=== PATIENT | male | born 1965 | race Caucasian/White ===

== ENCOUNTER → 2020-07-29 10:40 | Outpatient (BNVA) | payer MEDICARE, SELFPAY | PROVIDERS: Family Provider Internal Medicine; PCP Internal Medicine; Visit Provider Internal Medicine Rheumatology | DX: M45.9 Ankylosing spondylitis of unspecified sites in spine (principal); Z15.89 Genetic susceptibility to other disease; Z11.59 Encounter for screening for other viral diseases; Z79.899 Other long term (current) drug therapy; R76.8 Other specified abnormal immunological findings in serum; K50.90 Crohn's disease, unspecified, without complications | CPT/HCPCS: 80076; 82306; 82565; 85025; 85651; 86140; 86431; 86704; 86803; 87340; 99204 ==

== ENCOUNTER 2020-07-29 12:31 | Outpatient (CLI) | payer MEDICARE, SELFPAY ==
[2020-07-29 13:03] LABS: Basophils # 0.1 10^3/uL (0.0-0.1); Basophils % 1.3 %; Eosinophils # 0.1 10^3/uL (0.0-0.8); Eosinophils % 1.3 %; Hematocrit 37.3 % (42.0-52.0); Lymphocytes # 1.8 10^3/uL (0.8-4.8); Lymphocytes % 18.5 %; Mean Corpuscular HGB Conc 32.2 g/dL (30.0-36.0); Mean Corpuscular Hemoglobin 27.5 pg (28.0-34.0); Mean Corpuscular Volume 85.6 fL (80-94); Mean Platelet Volume 9.9 fL (7.4-10.4); Monocytes # 0.9 10^3/uL (0.2-0.9); Monocytes % 9.3 %; Neutrophils # 6.57 10^3/uL (1.8-7.7); Neutrophils % 69.1 %; Nucleated Red Blood Cells % 0 %; Platelet Count 429 10^3/cmm (130-400); Red Blood Count 4.36 10^6/uL (4.1-5.3); White Blood Count 9.5 10^3/uL (4.0-10.0)
[2020-07-29 13:50] LABS: 25 Hydroxy Vitamin D 23 ng/mL (30-100); Alanine Aminotransferase 67 U/L (0-41); Albumin Level 3.8 g/dL (3.5-5.2); Alkaline Phosphatase 71 IU/L (40-130); Aspartate Amino Transferase 41 U/L (0-40); C Reactive Protein 31.9 mg/L (0.0-4.9); Globulin 4.6 g/dL (1.3-4.6); Glomerular Filtration Rate 100.4 mL/min (90-130); Total Bilirubin 0.2 mg/dL (0.15-1.2); Total Protein 8.4 g/dL (6.6-8.7)
[2020-07-29 14:06] LABS: Hepatitis B Core AB, Total Non-Reactive (Nonreactive); Hepatitis B Surface Antigen Non-Reactive (Nonreactive); Hepatitis C Virus Antibody Non-Reactive (Nonreactive)
[2020-07-29 14:50] LABS: Erythrocyte Sedimentation Rate 103 mm/hr (0-10)
[2020-07-30 15:27] LABS: Cyclic Citrullinated Peptide <16 UNITS
[2020-07-31 12:38] LABS: COMPLEMENT COMPONENT C3C 216 mg/dL (82-185); COMPLEMENT COMPONENT C4C 43 mg/dL (15-53)
[2020-07-31 13:08] LABS: COMPLEMENT, TOTAL (CH50) >60 U/mL (31-60)
[2020-07-31 15:43] LABS: CENTROMERE B ANTIBODY <1.0 NEG AI (<1.0 NEG); JO-1 ANTIBODY <1.0 NEG AI (<1.0 NEG); RNP ANTIBODY <1.0 NEG AI (<1.0 NEG); SCL-70 ANTIBODY <1.0 NEG AI (<1.0 NEG); SJOGREN'S ANTIBODY (SS-A) <1.0 NEG AI (<1.0 NEG); SM ANTIBODY <1.0 NEG AI (<1.0 NEG); SS-B <1.0 NEG AI (<1.0 NEG)
[2020-07-31 16:14] LABS: THYROID PEROXIDASE ANTIBODIES 2 IU/mL (<9)
[2020-08-03 13:18] LABS: ANA SCREEN, IFA NEGATIVE (NEGATIVE)
[2020-08-03 21:18] LABS: DNA AB (DS) CRITHIDIA,IFA NEGATIVE (NEGATIVE)
== END 2020-07-29 12:32 | disposition home or self-care (01) ==
LOC: RAD 12:36
PROVIDERS: PCP Internal Medicine; Visit Provider Internal Medicine Rheumatology
DX: M45.9 Ankylosing spondylitis of unspecified sites in spine (principal); K50.90 Crohn's disease, unspecified, without complications; R76.8 Other specified abnormal immunological findings in serum; Z79.899 Other long term (current) drug therapy
CPT/HCPCS: 80076; 82306; 82565; 85025; 85651; 86140; 86431; 86704; 86803; 87340

== ENCOUNTER → 2020-12-01 10:28 | Outpatient (BNVA) | payer MEDICARE, SELFPAY | PROVIDERS: PCP Internal Medicine; Visit Provider Internal Medicine Rheumatology | DX: Z79.899 Other long term (current) drug therapy (principal); M19.90 Unspecified osteoarthritis, unspecified site | CPT/HCPCS: 36415; 80076; 82565; 85025; 86140 ==

== ENCOUNTER → 2020-12-08 14:30 | Outpatient (BNVA) | payer MEDICARE, SELFPAY | PROVIDERS: PCP Registered Nurse; Visit Provider Internal Medicine Rheumatology | DX: M45.9 Ankylosing spondylitis of unspecified sites in spine (principal); Z15.89 Genetic susceptibility to other disease; K50.90 Crohn's disease, unspecified, without complications; Z79.899 Other long term (current) drug therapy | CPT/HCPCS: 99214 ==

== ENCOUNTER → 2021-03-10 10:17 | Outpatient (BNVA) | payer MEDICARE, SELFPAY | PROVIDERS: PCP Registered Nurse; Visit Provider Internal Medicine Rheumatology | DX: M45.9 Ankylosing spondylitis of unspecified sites in spine (principal); Z79.899 Other long term (current) drug therapy | CPT/HCPCS: 36415; 80076; 82565; 82607; 85025; 86140 ==

== ENCOUNTER → 2021-03-23 12:46 | Outpatient (BNVA) | payer MEDICARE, SELFPAY | PROVIDERS: PCP Registered Nurse; Visit Provider Internal Medicine Rheumatology | DX: M45.9 Ankylosing spondylitis of unspecified sites in spine (principal); K50.90 Crohn's disease, unspecified, without complications; Z15.89 Genetic susceptibility to other disease; Z79.899 Other long term (current) drug therapy; Z71.89 Other specified counseling; Z90.49 Acquired absence of other specified parts of digestive tract; Z87.891 Personal history of nicotine dependence | CPT/HCPCS: 99214 ==

== ENCOUNTER → 2021-07-29 15:38 | Outpatient (BNVA) | payer MEDICARE, SELFPAY | PROVIDERS: PCP Registered Nurse; Visit Provider Registered Nurse | DX: Z12.83 Encounter for screening for malignant neoplasm of skin (principal) | CPT/HCPCS: 88305 ==

== ENCOUNTER → 2021-08-02 09:30 | Outpatient (BNVA) | payer MEDICARE, SELFPAY | PROVIDERS: PCP Registered Nurse; Visit Provider Internal Medicine Rheumatology | DX: M45.9 Ankylosing spondylitis of unspecified sites in spine (principal); Z79.899 Other long term (current) drug therapy; M19.90 Unspecified osteoarthritis, unspecified site | CPT/HCPCS: 36415; 80076; 82565; 85025; 86140 ==

== ENCOUNTER → 2021-08-09 11:28 | Outpatient (BNVA) | payer MEDICARE, SELFPAY | PROVIDERS: PCP Registered Nurse; Visit Provider Internal Medicine Rheumatology | DX: M45.9 Ankylosing spondylitis of unspecified sites in spine (principal); K50.90 Crohn's disease, unspecified, without complications; Z15.89 Genetic susceptibility to other disease; Z79.899 Other long term (current) drug therapy; Z90.49 Acquired absence of other specified parts of digestive tract; Z86.11 Personal history of tuberculosis; Z71.89 Other specified counseling | CPT/HCPCS: 99214 ==

== ENCOUNTER → 2021-09-16 15:24 | Outpatient (BNVA) | payer MEDICARE, SELFPAY | PROVIDERS: PCP Registered Nurse; Referring Provider Registered Nurse; Visit Provider Podiatrist Foot & Ankle Surgery | DX: M21.611 Bunion of right foot (principal); M21.612 Bunion of left foot; M21.41 Flat foot [pes planus] (acquired), right foot; M21.42 Flat foot [pes planus] (acquired), left foot; M20.41 Other hammer toe(s) (acquired), right foot; M20.42 Other hammer toe(s) (acquired), left foot | CPT/HCPCS: 73630 ==

== ENCOUNTER 2021-11-02 15:20 | Outpatient (CLI) | payer MEDICARE, SELFPAY | END 2021-11-02 15:21 | disposition home or self-care (01) | LOC: SPT 15:21 | PROVIDERS: PCP Registered Nurse; Visit Provider Podiatrist Foot & Ankle Surgery | DX: Z46.89 Encounter for fitting and adjustment of other specified devices (principal); M21.611 Bunion of right foot; M21.612 Bunion of left foot; M21.41 Flat foot [pes planus] (acquired), right foot; M21.42 Flat foot [pes planus] (acquired), left foot; M20.40 Other hammer toe(s) (acquired), unspecified foot | CPT/HCPCS: 97760; L3030 ==

== ENCOUNTER → 2021-11-18 09:49 | Outpatient (BNVA) | payer MEDICARE, SELFPAY | PROVIDERS: PCP Registered Nurse; Visit Provider Internal Medicine Rheumatology | DX: M45.9 Ankylosing spondylitis of unspecified sites in spine (principal); Z87.19 Personal history of other diseases of the digestive system; Z15.89 Genetic susceptibility to other disease; Z79.899 Other long term (current) drug therapy; Z90.49 Acquired absence of other specified parts of digestive tract; Z71.89 Other specified counseling | CPT/HCPCS: 36415; 80076; 82565; 85025; 86140; 99214 ==

== ENCOUNTER 2022-05-10 13:04 | Outpatient (CLI) | payer MEDICARE, SELFPAY ==
[2022-05-10 13:18] LABS: Basophils # 0.1 10^3/uL (0.0-0.1); Basophils % 1.3 %; Eosinophils # 0.3 10^3/uL (0.0-0.8); Eosinophils % 3.9 %; Hemoglobin 14.5 g/dL (11.7-16.6); Lymphocytes # 2.4 10^3/uL (0.8-4.8); Lymphocytes % 28.1 %; Mean Corpuscular HGB Conc 33.7 g/dL (30.0-36.0); Mean Corpuscular Volume 88.8 fl (80-94); Mean Platelet Volume 9.7 fL (7.4-10.4); Monocytes # 0.6 10^3/uL (0.2-0.9); Monocytes % 7.1 %; Neutrophils # 5.11 10^3/uL (1.8-7.7); Neutrophils % 59.4 %; Nucleated Red Blood Cells % 0 %; Platelet Count 298 10^3/cmm (130-400); Red Blood Count 4.84 10^6/uL (4.1-5.3); Red Cell Distribution Width 12.2 % (12.1-15.1); White Blood Count 8.6 10^3/uL (4.0-10.0)
[2022-05-10 13:45] LABS: Albumin Level 4.5 g/dL (3.5-5.2); Alkaline Phosphatase 53 U/L (40-130); Aspartate Amino Transferase 46 U/L (0-40); Globulin 4.3 g/dL (1.3-4.6); Total Bilirubin 0.5 mg/dL (0.15-1.2); Total Protein 8.8 g/dL (6.6-8.7)
[2022-05-10 15:13] LABS: Alanine Aminotransferase 67 U/L (0-41)
== END 2022-05-10 13:05 | disposition home or self-care (01) ==
LOC: LAB 13:05
PROVIDERS: PCP Registered Nurse; Visit Provider Internal Medicine Rheumatology
DX: M45.9 Ankylosing spondylitis of unspecified sites in spine (principal); Z79.899 Other long term (current) drug therapy
CPT/HCPCS: 36415; 80076; 82565; 85025; 86140

== ENCOUNTER → 2022-05-23 10:29 | Outpatient (BNVA) | payer MEDICARE, SELFPAY | PROVIDERS: PCP Registered Nurse; Visit Provider Internal Medicine Rheumatology | DX: M45.9 Ankylosing spondylitis of unspecified sites in spine (principal); Z15.89 Genetic susceptibility to other disease; K50.90 Crohn's disease, unspecified, without complications; Z79.899 Other long term (current) drug therapy; Z71.89 Other specified counseling | CPT/HCPCS: 99214 ==

== ENCOUNTER → 2022-06-15 09:12 | Outpatient (BNVA) | payer MEDICARE, SELFPAY | PROVIDERS: PCP Registered Nurse; Visit Provider Registered Nurse | DX: I10 Essential (primary) hypertension (principal) | CPT/HCPCS: 80053; 80061 ==

== ENCOUNTER 2022-10-19 15:29 | Outpatient (CLI) | payer MEDICARE, SELFPAY ==
[2022-10-19 16:17] LABS: Basophils # 0.1 10^3/uL (0.0-0.1); Basophils % 1.3 %; Eosinophils # 0.2 10^3/uL (0.0-0.8); Eosinophils % 2.4 %; Hematocrit 43.6 % (42.0-52.0); Hemoglobin 14.8 g/dL (11.7-16.6); Lymphocytes # 2.6 10^3/uL (0.8-4.8); Lymphocytes % 31.3 %; Mean Corpuscular HGB Conc 33.9 g/dL (30.0-36.0); Mean Corpuscular Hemoglobin 29.6 pg (28.0-34.0); Mean Corpuscular Volume 87.2 fl (80-94); Mean Platelet Volume 9.6 fL (7.4-10.4); Monocytes # 1.2 10^3/uL (0.2-0.9); Monocytes % 14.7 %; Neutrophils # 4.23 10^3/uL (1.8-7.7); Neutrophils % 50.1 %; Nucleated Red Blood Cells % 0 %; Platelet Count 297 10^3/cmm (130-400); White Blood Count 8.4 10^3/uL (4.0-10.0)
[2022-10-19 16:48] LABS: Alanine Aminotransferase 59 U/L (0-41); Albumin Level 4.2 g/dL (3.5-5.2); Alkaline Phosphatase 53 U/L (40-130); Aspartate Amino Transferase 42 U/L (0-40); C Reactive Protein 7.1 mg/L (0.0-4.9); Globulin 4.3 g/dL (1.3-4.6); Glomerular Filtration Rate 76.7 mL/min (90-130); Total Bilirubin 0.5 mg/dL (0.15-1.2); Total Protein 8.5 g/dL (6.6-8.7)
== END 2022-10-19 15:30 | disposition home or self-care (01) ==
PROVIDERS: PCP Registered Nurse; Visit Provider Internal Medicine Rheumatology
DX: M45.9 Ankylosing spondylitis of unspecified sites in spine (principal); Z79.899 Other long term (current) drug therapy
CPT/HCPCS: 36415; 80076; 82565; 85025; 86140

== ENCOUNTER → 2022-10-24 11:23 | Outpatient (BNVA) | payer MEDICARE, SELFPAY | PROVIDERS: PCP Registered Nurse; Visit Provider Internal Medicine Rheumatology | DX: M45.9 Ankylosing spondylitis of unspecified sites in spine (principal); Z79.899 Other long term (current) drug therapy; Z15.89 Genetic susceptibility to other disease; K50.90 Crohn's disease, unspecified, without complications; Z71.89 Other specified counseling; Z86.11 Personal history of tuberculosis | CPT/HCPCS: 99214 ==

== ENCOUNTER 2022-11-23 12:32 | Outpatient (CLI) | payer MEDICARE, SELFPAY ==
[2022-11-23 13:04] LABS: Basophils # 0.1 10^3/uL (0.0-0.1); Basophils % 1.7 %; Eosinophils # 0.2 10^3/uL (0.0-0.8); Eosinophils % 3.8 %; Hematocrit 42.4 % (42.0-52.0); Hemoglobin 14.1 g/dL (11.7-16.6); Lymphocytes # 2.1 10^3/uL (0.8-4.8); Lymphocytes % 35.6 %; Mean Corpuscular HGB Conc 33.3 g/dL (30.0-36.0); Mean Corpuscular Hemoglobin 29.6 pg (28.0-34.0); Mean Corpuscular Volume 89.1 fl (80-94); Mean Platelet Volume 9.7 fL (7.4-10.4); Monocytes # 0.7 10^3/uL (0.2-0.9); Monocytes % 11.7 %; Neutrophils # 2.81 10^3/uL (1.8-7.7); Nucleated Red Blood Cells % 0 %; Platelet Count 289 10^3/cmm (130-400); Red Blood Count 4.76 10^6/uL (4.1-5.3); Red Cell Distribution Width 12.2 % (12.1-15.1)
[2022-11-23 13:33] LABS: Alanine Aminotransferase 49 U/L (0-41); Albumin Level 4.7 g/dL (3.5-5.2); Alkaline Phosphatase 45 U/L (40-130); Aspartate Amino Transferase 40 U/L (0-40); Globulin 3.8 g/dL (1.3-4.6); Glomerular Filtration Rate 86.7 mL/min (90-130); Total Bilirubin 0.5 mg/dL (0.15-1.2); Total Protein 8.5 g/dL (6.6-8.7)
== END 2022-11-23 12:33 | disposition home or self-care (01) ==
PROVIDERS: PCP Registered Nurse; Visit Provider Internal Medicine Rheumatology
DX: M45.9 Ankylosing spondylitis of unspecified sites in spine (principal); Z79.899 Other long term (current) drug therapy
CPT/HCPCS: 36415; 80076; 82565; 85025; 86140

== ENCOUNTER 2023-01-24 12:58 | Outpatient (CLI) | payer MEDICARE, SELFPAY ==
[2023-01-24 13:36] LABS: Basophils # 0.1 10^3/uL (0.0-0.1); Basophils % 1.5 %; Eosinophils # 0.3 10^3/uL (0.0-0.8); Eosinophils % 3.7 %; Hematocrit 42.8 % (42.0-52.0); Hemoglobin 14.7 g/dL (11.7-16.6); Lymphocytes # 2.5 10^3/uL (0.8-4.8); Lymphocytes % 32.4 %; Mean Corpuscular HGB Conc 34.3 g/dL (30.0-36.0); Mean Corpuscular Hemoglobin 30.9 pg (28.0-34.0); Mean Corpuscular Volume 89.9 fl (80-94); Mean Platelet Volume 9.3 fL (7.4-10.4); Monocytes # 0.9 10^3/uL (0.2-0.9); Neutrophils # 3.88 10^3/uL (1.8-7.7); Neutrophils % 50.1 %; Nucleated Red Blood Cells % 0 %; Platelet Count 315 10^3/cmm (130-400); Red Blood Count 4.76 10^6/uL (4.1-5.3); Red Cell Distribution Width 12.8 % (12.1-15.1); White Blood Count 7.8 10^3/uL (4.0-10.0)
[2023-01-24 14:03] LABS: Alanine Aminotransferase 31 U/L (0-41); Albumin Level 4.5 g/dL (3.5-5.2); Alkaline Phosphatase 49 U/L (40-130); Aspartate Amino Transferase 32 U/L (0-40); C Reactive Protein 4.1 mg/L (0.0-4.9); Glomerular Filtration Rate 86.7 mL/min (90-130); Total Bilirubin 0.9 mg/dL (0.15-1.2); Total Protein 8.5 g/dL (6.6-8.7)
== END 2023-01-24 12:59 | disposition home or self-care (01) ==
PROVIDERS: PCP Registered Nurse; Visit Provider Internal Medicine Rheumatology
DX: M45.9 Ankylosing spondylitis of unspecified sites in spine (principal); Z79.899 Other long term (current) drug therapy
CPT/HCPCS: 36415; 80076; 82565; 85025; 86140

== ENCOUNTER 2023-04-06 11:05 | Outpatient (CLI) | payer MEDICARE, SELFPAY ==
[2023-04-06 12:26] LABS: Alanine Aminotransferase 37 U/L (0-41); Albumin Level 4.5 g/dL (3.5-5.2); Alkaline Phosphatase 42 U/L (40-130); Aspartate Amino Transferase 35 U/L (0-40); Globulin 3.3 g/dL (1.3-4.6); Glomerular Filtration Rate 86.7 mL/min (90-130); Total Bilirubin 0.4 mg/dL (0.15-1.2); Total Protein 7.8 g/dL (6.6-8.7)
[2023-04-06 12:35] LABS: Basophils # 0.1 10^3/uL (0.0-0.1); Basophils % 2.2 %; Eosinophils # 0.2 10^3/uL (0.0-0.8); Eosinophils % 2.7 %; Hematocrit 41.2 % (42.0-52.0); Hemoglobin 14.1 g/dL (11.7-16.6); Lymphocytes # 1.9 10^3/uL (0.8-4.8); Lymphocytes % 32.2 %; Mean Corpuscular HGB Conc 34.2 g/dL (30.0-36.0); Mean Corpuscular Volume 90.5 fl (80-94); Mean Platelet Volume 9.9 fL (7.4-10.4); Monocytes # 0.7 10^3/uL (0.2-0.9); Monocytes % 10.9 %; Neutrophils # 3.12 10^3/uL (1.8-7.7); Neutrophils % 51.7 %; Nucleated Red Blood Cells % 0 %; Platelet Count 316 10^3/cmm (130-400); Red Blood Count 4.55 10^6/uL (4.1-5.3); Red Cell Distribution Width 11.9 % (12.1-15.1)
== END 2023-04-06 11:06 | disposition home or self-care (01) ==
PROVIDERS: PCP Registered Nurse; Visit Provider Internal Medicine Rheumatology
DX: M45.9 Ankylosing spondylitis of unspecified sites in spine (principal); Z79.899 Other long term (current) drug therapy
CPT/HCPCS: 80076; 82565; 85025; 86140

== ENCOUNTER → 2023-04-10 11:10 | Outpatient (BNVA) | payer MEDICARE, SELFPAY | PROVIDERS: PCP Registered Nurse; Visit Provider Internal Medicine Rheumatology | DX: Z79.899 Other long term (current) drug therapy (principal); M45.9 Ankylosing spondylitis of unspecified sites in spine; Z15.89 Genetic susceptibility to other disease; K50.90 Crohn's disease, unspecified, without complications; Z71.89 Other specified counseling; Z90.49 Acquired absence of other specified parts of digestive tract; Z86.11 Personal history of tuberculosis | CPT/HCPCS: 99214 ==

== ENCOUNTER → 2023-05-18 11:08 | Outpatient (BNVA) | payer MEDICARE, SELFPAY | PROVIDERS: PCP Registered Nurse; Visit Provider Nurse Practitioner Family | DX: L20.89 Other atopic dermatitis (principal); D22.5 Melanocytic nevi of trunk; L81.4 Other melanin hyperpigmentation; L57.8 Other skin changes due to chronic exposure to nonionizing radiation; L57.0 Actinic keratosis | CPT/HCPCS: 17000; 99213 ==

== ENCOUNTER → 2023-06-14 08:30 | Outpatient (BNVA) | payer MEDICARE, SELFPAY | PROVIDERS: PCP Registered Nurse; Visit Provider Registered Nurse | DX: Z12.5 Encounter for screening for malignant neoplasm of prostate (principal); Z79.899 Other long term (current) drug therapy | CPT/HCPCS: 80061; G0103 ==

== ENCOUNTER 2023-10-02 10:02 | Outpatient (CLI) | payer MEDICARE, SELFPAY ==
[2023-10-02 10:39] LABS: Basophils # 0.1 10^3/uL (0.0-0.1); Basophils % 1.7 %; Eosinophils # 0.2 10^3/uL (0.0-0.8); Eosinophils % 3.3 %; Hematocrit 41.8 % (37-53); Lymphocytes # 2.3 10^3/uL (0.8-4.8); Lymphocytes % 31.3 %; Mean Corpuscular HGB Conc 33.7 g/dL (30-55); Mean Corpuscular Hemoglobin 31.1 pg (27-33); Mean Corpuscular Volume 92.3 fl (82-101); Mean Platelet Volume 9.4 fL (7.4-10.4); Monocytes # 0.8 10^3/uL (0.2-0.9); Monocytes % 10.7 %; Neutrophils # 3.79 10^3/uL (1.8-7.7); Neutrophils % 52.9 %; Nucleated Red Blood Cells % 0 %; Platelet Count 295 10^3/cmm (157-399); Red Blood Count 4.53 10^6/uL (3.85-5.65); Red Cell Distribution Width 11.9 % (12.1-15.1); White Blood Count 7.18 10^3/uL (3.29-11.43)
[2023-10-02 11:07] LABS: Alanine Aminotransferase 64 U/L (0-41); Albumin Level 4.1 g/dL (3.5-5.2); Alkaline Phosphatase 49 U/L (40-130); Aspartate Amino Transferase 41 U/L (0-40); Glomerular Filtration Rate 76.5 mL/min (90-130); Total Bilirubin 0.4 mg/dL (0.15-1.2); Total Protein 8.1 g/dL (6.6-8.7)
== END 2023-10-02 10:03 | disposition home or self-care (01) ==
LOC: LAB 10:02
PROVIDERS: PCP Registered Nurse; Visit Provider Internal Medicine Rheumatology
DX: M45.9 Ankylosing spondylitis of unspecified sites in spine (principal); Z79.899 Other long term (current) drug therapy
CPT/HCPCS: 36415; 80076; 82565; 85025; 86140

== ENCOUNTER → 2023-11-16 11:11 | Outpatient (BNVA) | payer MEDICARE, SELFPAY | PROVIDERS: PCP Registered Nurse; Visit Provider Nurse Practitioner Family | DX: L20.89 Other atopic dermatitis (principal); D22.5 Melanocytic nevi of trunk; L81.4 Other melanin hyperpigmentation; L57.8 Other skin changes due to chronic exposure to nonionizing radiation; L57.0 Actinic keratosis | CPT/HCPCS: 99214 ==

== ENCOUNTER → 2023-12-18 10:25 | Outpatient (BNVA) | payer MEDICARE, SELFPAY | PROVIDERS: PCP Registered Nurse; Visit Provider Nurse Practitioner Family | DX: L20.89 Other atopic dermatitis (principal); D22.5 Melanocytic nevi of trunk; L81.4 Other melanin hyperpigmentation; L57.8 Other skin changes due to chronic exposure to nonionizing radiation; L57.0 Actinic keratosis | CPT/HCPCS: 99214 ==

== ENCOUNTER → 2024-01-17 14:41 | Outpatient (BNVA) | payer MEDICARE, SELFPAY | PROVIDERS: PCP Registered Nurse; Visit Provider Internal Medicine Rheumatology | DX: Z15.89 Genetic susceptibility to other disease (principal); M45.9 Ankylosing spondylitis of unspecified sites in spine; Z79.899 Other long term (current) drug therapy; K50.90 Crohn's disease, unspecified, without complications; Z71.89 Other specified counseling | CPT/HCPCS: 36415; 80076; 82565; 85025; 86140; 99214 ==

== ENCOUNTER → 2024-03-27 10:34 | Outpatient (BNVA) | payer MEDICARE, SELFPAY | PROVIDERS: PCP Registered Nurse; Referring Provider Registered Nurse; Visit Provider Psychiatry & Neurology Neurology | DX: G62.9 Polyneuropathy, unspecified (principal); Q28.3 Other malformations of cerebral vessels; M54.2 Cervicalgia; R25.2 Cramp and spasm; H53.9 Unspecified visual disturbance; M79.601 Pain in right arm; M79.602 Pain in left arm; K50.90 Crohn's disease, unspecified, without complications; M45.9 Ankylosing spondylitis of unspecified sites in spine; R29.2 Abnormal reflex | CPT/HCPCS: 99203 ==

== ENCOUNTER 2024-04-15 10:52 | Outpatient (CLI) | payer MEDICARE, SELFPAY ==
[2024-04-15 11:33] LABS: Basophils # 0.1 10^3/uL (0.0-0.1); Eosinophils # 0.2 10^3/uL (0.0-0.8); Eosinophils % 2.7 %; Hematocrit 43.1 % (37-53); Lymphocytes # 2.3 10^3/uL (0.8-4.8); Lymphocytes % 34.9 %; Mean Corpuscular HGB Conc 33.4 g/dL (30-55); Mean Corpuscular Volume 89.8 fl (82-101); Mean Platelet Volume 9.6 fL (7.4-10.4); Monocytes # 0.7 10^3/uL (0.2-0.9); Monocytes % 10.3 %; Neutrophils % 49.9 %; Nucleated Red Blood Cells % 0 %; Platelet Count 293 10^3/cmm (157-399); Red Cell Distribution Width 12.1 % (12.1-15.1); White Blood Count 6.61 10^3/uL (3.29-11.43)
[2024-04-15 11:58] LABS: Erythrocyte Sedimentation Rate 9 mm/hr (0-10)
[2024-04-15 12:03] LABS: Alanine Aminotransferase 42 U/L (0-41); Albumin Level 4.5 g/dL (3.5-5.2); Alkaline Phosphatase 50 U/L (40-130); Aspartate Amino Transferase 33 U/L (0-40); Globulin 3.6 g/dL (1.3-4.6); Glomerular Filtration Rate 68.5 mL/min (90-130); Total Bilirubin 0.4 mg/dL (0.15-1.2); Total Protein 8.1 g/dL (6.6-8.7)
== END 2024-04-15 10:53 | disposition home or self-care (01) ==
LOC: LAB 10:55
PROVIDERS: PCP Registered Nurse; Visit Provider Internal Medicine Rheumatology
DX: Z79.899 Other long term (current) drug therapy (principal); M45.9 Ankylosing spondylitis of unspecified sites in spine
CPT/HCPCS: 36415; 80076; 82565; 85025; 85651; 86140

== ENCOUNTER 2024-05-02 08:56 | Outpatient (CLI) | payer MEDICARE, SELFPAY ==
--- NOTE | 2024-05-02 09:30 | MR_ITS ---
WS: [id number] MRI HEAD WITH CONTRAST TECHNIQUE: Sagittal T1, T2 axial, T2 axial FLAIR, axial susceptibility weighted imaging, axial diffus ion weighted images, and coronal T2 images were obtained. Pre and post-T1 axial and post T1 coronal i mages. ADC and FSPGR images. CLINICAL INFORMATION: Q28.3 - Other malformations of cerebral vessels COMPARISON: None. FINDINGS: No evidence of restricted diffusion to suggest acute ischemia. Ventricular system and basal cisterns are patent. Focus of hemosiderin in the LEFT paramedian cerebellum with associated peripheral hemosid antelmo on the T2 imaging mass compatible with cavernoma. No associated venous angioma visualized. No ot her foci of hemosiderin. Normal posterior fossa. Normal vascular flow voids at the skull base. No extra-axial fluid collection s. No evidence of mass or mass effect. Paranasal sinuses and mastoid air cells are well aerated. Few foci of T2 hyperintensity in the supratentorial white matter can be seen with hypertension, diabe carlos and small vessel disease in a patient this age. Mild parenchymal volume loss. No abnormal intracranial enhancement. Dural venous sinuses appear patent. Normal optic chiasm and pit uitary infundibulum. Normal cavernous sinuses and Meckel's cave. MR/MR head wo/w con [id number] IMPRESSION: 1. No evidence of restricted diffusion to suggest acute ischemia. 2. 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 No associated venous angioma. 3. Mild supratentorial white matter changes nonspecific in a patient of this a ge but can be seen with hypertension, diabetes, small vessel disease. Mild pare nchymal volume loss. 4. No abnormal gadolinium enhancement. 5. No other acute findings.
[2024-05-02] MEDS: gadobenate dimeglumine 20 mL vial IV (10:04)
--- NOTE | 2024-05-02 10:15 | MR_ITS ---
WS: [id number] MR CERVICAL SPINE WO/W COMPARISON: None. HISTORY: M45.9 - Ankylosing spondylitis of unspecified sites in spine TECHNIQUE: Sagittal T1, T2 and T2 inversion recovery; axial T2, T2 gradient and fiesta. Post gadolini um imaging with fat saturation technique. FINDINGS: Straightening of the normal cervical lordosis. Mild central canal stenosis C4-C6 with disc osteophyte complexes. Cord signal is normal. No abnormal gadolinium enhancement. C2-3: Spinal canal and foramen are patent. C3-4: Mild facet arthropathy. Spinal canal and foramen are patent. C4-5: Small RIGHT paracentral disc osteophyte protrusion with slight indentation RIGHT ventral cervi keyla cord. Mild central canal stenosis with mild facet arthropathy. Moderate RIGHT and mild LEFT bony foraminal narrowing. C5-6: Disc osteophyte complex with mild to moderate central canal stenosis with slight indentation of the cervical cord. Moderate to severe bilateral bony foraminal narrowing with facet arthropathy and uncovertebral joint hypertrophy. C6-7: Tiny central disc protrusion with slight contact of the cervical cord and mild central canal st enosis. Moderate to severe LEFT and mild RIGHT bony foraminal narrowing. C7-T1: No significant disc bulging. Spinal canal and foramina are patent. MR/MR cervical spine wo/w [id number] IMPRESSION: 1. Moderate central canal stenosis C5-C6 due to disc osteophyte complex. 2. Mild central canal stenosis C4-C5 and C6-C7 with small disc osteophyte prot rusions. 3. Moderate to severe bony foraminal narrowing worse at RIGHT C4-5, bilateral C5-6, and LEFT C6-7.
--- NOTE | 2024-05-02 10:45 | MR_ITS ---
WS: [id number] MRA HEAD TECHNIQUE: Axial 3-D TOF images obtained with axial images and axial, sagittal, and coronal 2-D refor matted images. CLINICAL INFORMATION: M45.9 - Ankylosing spondylitis of unspecified sites in spine COMPARISON: None. FINDINGS: Distal vertebral arteries are patent. Basilar artery is patent. Normal vascularity to the [employer] territo ry bilaterally. Both ICAs are patent at the skull base. Tortuous cavernous carotid arteries. Patent anterior communic ating artery. Absent LEFT A1 segment. Normal vascularity to the [place] and MCA territories bilaterally. No evidence of high-grade proximal stenosis or aneurysm. MR/MR angio head wo con [id number] IMPRESSION: Unremarkable intracranial MRA.
== END 2024-05-02 08:57 | disposition home or self-care (01) ==
LOC: RAD 08:56
PROVIDERS: PCP Registered Nurse; Visit Provider Psychiatry & Neurology Neurology
DX: M45.9 Ankylosing spondylitis of unspecified sites in spine (principal); Q28.3 Other malformations of cerebral vessels; M48.02 Spinal stenosis, cervical region; M25.78 Osteophyte, vertebrae; M47.892 Other spondylosis, cervical region; R93.89 Abnormal findings on diagnostic imaging of other specified body structures
CPT/HCPCS: 36415; 70544; 70553; 72156; 82306; 82746; 83735; 83921; 84425; 84439; 84443; 84481

== ENCOUNTER → 2024-05-16 13:08 | Outpatient (BNVA) | payer MEDICARE, SELFPAY | PROVIDERS: PCP Registered Nurse; Visit Provider Orthopaedic Surgery | DX: M54.2 Cervicalgia (principal); M47.12 Other spondylosis with myelopathy, cervical region | CPT/HCPCS: 72050; 99204 ==

== ENCOUNTER 2024-05-20 12:23 | Outpatient (CLI) | payer MEDICARE, SELFPAY ==
[2024-05-20 12:57] LABS: Basophils # 0.1 10^3/uL (0.0-0.1); Basophils % 1.9 %; Eosinophils # 0.3 10^3/uL (0.0-0.8); Eosinophils % 3.9 %; Hematocrit 41.5 % (37-53); Lymphocytes # 1.6 10^3/uL (0.8-4.8); Lymphocytes % 25.6 %; Mean Corpuscular HGB Conc 33.7 g/dL (30-55); Mean Corpuscular Hemoglobin 30.8 pg (27-33); Mean Corpuscular Volume 91.4 fl (82-101); Mean Platelet Volume 9.9 fL (7.4-10.4); Monocytes # 0.6 10^3/uL (0.2-0.9); Monocytes % 10.1 %; Neutrophils % 58.2 %; Nucleated Red Blood Cells % 0 %; Platelet Count 307 10^3/cmm (157-399); Red Blood Count 4.54 10^6/uL (3.85-5.65); Red Cell Distribution Width 12.2 % (12.1-15.1); White Blood Count 6.36 10^3/uL (3.29-11.43)
[2024-05-20 13:18] LABS: Alanine Aminotransferase 39 U/L (0-41); Albumin Level 4.4 g/dL (3.5-5.2); Alkaline Phosphatase 57 U/L (40-130); Anion Gap 13.9 (5-19); Aspartate Amino Transferase 35 U/L (0-40); Blood Urea Nitrogen 12 mg/dL (6-20); Calcium 9.4 mg/dL (8.5-10.5); Carbon Dioxide 26 mmol/L (22-29); Chloride 104 mmol/L (98-107); Globulin 3.2 g/dL (1.3-4.6); Glomerular Filtration Rate 76.5 mL/min (90-130); Glucose 101 mg/dL (65-115); Osmolality Calculated 290 mOsm/kg (285-295); Potassium 3.9 mmol/L (3.5-5.1); Sodium 140 mmol/L (136-145); Total Bilirubin 0.5 mg/dL (0.15-1.2); Total Protein 7.6 g/dL (6.6-8.7)
[2024-05-20 13:32] LABS: Bilirubin Urine Negative (Negative); Blood Urine Negative (Negative); Glucose Urine UA Negative (Normal); Ketones Urine Negative (Negative); Leukocyte Esterase Urine Negative (Negative); Nitrate Urine Negative (Negative); Protein Urine Negative (Negative); Specific Gravity, Urine 1.018 (1.005-1.030); Urine Appearance Clear (CLEAR); Urine Color Yellow (Yellow); Urobilinogen Urine 0.2 mg/dL (Negative); pH Urine 5.5 (5-7)
[2024-05-20 13:37] LABS: Add Urine Microscopic? YES; Bacteria Urine None Seen /hpf; Hyaline Casts Urine 0-4 /lpf; RBC Urine 0-2 /hpf (0-2); Squamous Epithelial Cell Urine 0-5 /hpf (0-5); WBC Urine 0-5 /hpf (0-5)
== END 2024-05-20 12:24 | disposition home or self-care (01) ==
LOC: LAB 12:25
PROVIDERS: PCP Registered Nurse; Visit Provider Orthopaedic Surgery
DX: M47.12 Other spondylosis with myelopathy, cervical region (principal)
CPT/HCPCS: 36415; 80053; 81001; 85025

== ENCOUNTER → 2024-06-19 09:51 | Outpatient (BNVA) | payer MEDICARE, SELFPAY | PROVIDERS: PCP Registered Nurse; Visit Provider Family Medicine | DX: Z01.818 Encounter for other preprocedural examination (principal) | CPT/HCPCS: 80048; 81003; 85025 ==

== ENCOUNTER 2024-07-01 09:36 | Inpatient (IN) | payer MEDICARE, SELFPAY ==
[2024-07-01] VITALS (22 sets, daily range): BP systolic 107–148; BP diastolic 62–90; PULSE 54–103; RESP 10–28; TEMP 36.1–36.8; O2SAT 90–99; BMI 27.3
--- NOTE | 2024-07-01 | XR_ITS ---
WS: [id number] XR cervical spine 3V* [id number] REASON FOR EXAM: MARLA PICS FINDINGS: Anterior plate and screw fixation with interbody fusion devices C4-C7. Surgical appliances are intact and in proper position and alignment. XR/XR cervical spine 3V* [id number] IMPRESSION: Anterior cervical fusion as above without abnormality.
[2024-07-01] MEDS: sodium chloride 0.9% 1,000 ML 30 ML IV (06:20)
--- NOTE | 2024-07-01 06:29 | W.PM.OPSUD ---
Surgery/Procedure H&P Update DATE OF PROCEDURE: July 01, 2024 DATE H&P PERFORMED: 06/19/24 H&P UPDATE INFORMATION: I have reviewed H&P completed within last 30 days, I have examined patient prior to procedure and No changes to prior documentation PREOP DIAGNOSIS: Cervical spondylosis with myelopathy PLANNED PROCEDURE: Operation Date: 07/01/24 07:00 Proposed Procedures p Anterior Cervical Discectomy & Fusion ACDF w/ Anterior Interbody Fusion w/ Cage w/ Instrumentation w/ Allograft w/ Navigation(Not Applicable) - Luan Costa DO
--- NOTE | 2024-07-01 06:45 | ANES.PREANE2 ---
Pre-Anesthetic Assessment Height/Weight: Height 1.8 m Weight 86.183 kg Temp Pulse Resp BP Pulse Ox O2 Del Method 97.7 F 83 18 136/86 94 Oxymask 07/01/24 06:12 07/01/24 06:12 07/01/24 06:12 07/01/24 06:12 07/01/24 06:12 07/01/24 06:12 Preop Diagnosis: Cervical spondylosis with myelopathy Operation Date: 07/01/24 07:00 Proposed Procedures p Anterior Cervical Discectomy & Fusion ACDF w/ Anterior Interbody Fusion w/ Cage w/ Instrumentation w/ Allograft w/ Navigation(Not Applicable) - Luan Costa, DO Familial anesthetic complications: None Was Beta Catalina taken within 24 hours: Yes Was Clonidine taken within 24 hours: N/A Last intake: Intake Last Liquid Date 06/30/24 Last Liquid Time 21:00 Last Solid Date 06/30/24 Last Solid Time 21:00 Social No alcohol and No tobacco Exam alert, oriented x 3, clear to auscultation bilaterally and regular rate & rhythm Airway Mallampati: Class III Dentition: chipped (bottom tooth) CV/HEM Hypertension Atrial Septal aneurysm - no symptoms GI crohn's Anesthetic Plan ASA status: 3 Anesthesia: General Risk of > 500 ml blood loss (7ml/kg in children): No Medications/Allergies Home Medications Medication Instructions Recorded Confirmed Last Taken Type multivitamin 1 tab PO DAILY 07/29/20 06/27/24 06/20/24 History Custom Molded Orthotics #1 ea 09/16/21 05/16/24 Unknown Rx sulfasalazine 500 mg tablet 1 g (2 x 500 mg) PO DAILY #180 tabs 01/17/24 06/27/24 06/27/24 Rx betamethasone dipropionate 0.05 % 1 applic topical PRN 03/27/24 06/27/24 Unknown History topical ointment cholecalciferol (vitamin D3) 50 50 mcg PO DAILY 03/27/24 06/27/24 06/20/24 History mcg (2,000 unit) capsule mecobalamin (vitamin B12) 1,000 1,000 mcg PO DAILY 03/27/24 06/27/24 06/26/24 History mcg chewable tablet mometasone 0.1 % topical ointment 1 applic topical DIRECTED 03/27/24 07/01/24 Unknown History mupirocin 2 % topical ointment 1 applic topical DIRECTED 03/27/24 07/01/24 Unknown History tacrolimus 0.1 % topical ointment 1 applic topical DIRECTED 03/27/24 07/01/24 Unknown History Bone Growth Stimulator #1 ea 06/03/24 Unknown Rx bisoprolol 10 1 tab PO DAILY 06/27/24 07/01/24 07/01/24 History mg-hydrochlorothiazide 6.25 mg tablet certolizumab pegol 400 mg/2 mL 200 mg SUBCUT .Q14D 06/27/24 06/27/24 05/30/24 History (200 mg/mL x2) subcutaneous syringe kit (Cimzia) amitriptyline 50 mg tablet 50 mg PO DAILY #90 tabs 06/28/24 07/01/24 Unknown Rx Allergies Allergy/AdvReac Type Severity Reaction Status Date / Time No Known Allergies Allergy Verified 06/19/24 09:53 Current Medications Generic Name Dose Route Start Last Admin Trade Name Freq PRN Reason Stop Dose Admin Sodium Chloride 1,000 mls @ 30 mls/hr 07/01/24 06:00 07/01/24 06:20 Sodium Chloride 0.9% IV 07/02/24 05:59 30 mls/hr .Q24H CRISTIAN Administration PFSH Anesthesia Medical History COVID-19 vaccine administered Pancreatitis Insomnia disorder Immunization counseling High risk medication use Crohn's disease in remission HLA B27 (HLA B27 positive) Ankylosing spondylitis Crohn's disease Ankylosing spondylitis Non-alcoholic fatty liver disease DDD (degenerative disc disease) Hypertension Atrial septal aneurysm Latent tuberculosis Tx rifampin finished 05/2020 Hiatal hernia repair in 1994 Surgical History History of bowel resection with appey 1998 Family History Other Cancer Diabetes Hypertension Stroke Denies family history of Rheumatoid arthritis Lupus CAD (coronary artery disease) Hyperlipidemia Chronic kidney disease (CKD) Lung disease Social History Smoking and tobacco/nicotine status: never used tobacco/nicotine Alcohol intake: never Data Anesthesia Cardiac Studies: No Data to Display
[2024-07-01] MEDS: ceFAZolin 2,000 mg SDV 2000 MG IVP ×3 (07:03→22:13)
[2024-07-01] MEDS: lidocaine-epi 1% 20 mL INJ INJECTION (08:23)
--- NOTE | 2024-07-01 10:27 | PM.OP ---
Operative Report Date of procedure: July 01, 2024 Pre-op diagnosis: Cervical stenosis with radiculopathy and myelopathy Post-op diagnosis: same Procedure done: 1. Anterior disketomy C4/5 2. Anterior diskectomy C5/6 3. Anterior discectomy C6/7 4. Insertion of cage at C4/5 5. Insertion of cage C5/6 6. Insertion of Cage C6/7 7. Instrumentation with anterior plate from C4-C7 8. Use of allograft Surgeon: Luan Costa DO Estimated blood loss (mL): 50 Procedure: 1. Anterior disketomy C4/5 2. Anterior diskectomy C5/6 3. Anterior discectomy C6/7 4. Insertion of cage at C4/5 5. Insertion of cage C5/6 6. Insertion of Cage C6/7 7. Instrumentation with anterior plate from C4-C7 8. Use of allograft The patient was taken to the operating room, where he underwent general endotracheal anesthesia without complications. He was then positioned supine on the operating table, and all areas of impingement were well padded. The arms were carefully padded and tucked at his sides. A roll was placed between the shoulder blades.. An x-ray was done to determine the appropriate level for the skin incision. The entire neck was then sterilely prepped and draped in the usual fashion. Neuromonitoring was attached prior to prepping. A transverse skin incision was made and carried down to the platysma muscle. This was then split in line with its fibers. Blunt dissection was carried down medial to the carotid sheath and lateral to the trachea and esophagus until the anterior cervical spine was visualized. A needle was placed into a disc and an x-ray was done to determine its location. The longus colli muscles were then elevated bilaterally with the electrocautery unit. Self-retaining retractors were placed deep to the longus colli muscle. Attention was brought to the C4/5 level that was confirmed on x-ray. A caspar pin was placed into the C4 vertebrae and the C5 vertebrae. The disk space was then distracted. The microscope was then brought in. A radical anterior discectomies were performed at C4/5. This included complete removal of the anterior annulus, nucleus, and posterior annulus. The posterior longitudinal ligament was removed as were the posterior osteophytes. Foraminotomies were then accomplished bilaterally. This was done using a high speed elizabeth, kerrison rongeurs and curretes Once all of this was accomplished, the curved currette was used to check for any residual compression. The central canal was wide open as were the foramen. A high-speed bur was used to remove the cartilaginous endplates above and below the interspace. Bleeding cancellous bone was exposed. The disc space were measured and appropriate size cage were placed sterilely onto the field. Allograft graft was packed into the cages. The cage was then placed and there was good juxtaposition against the bleeding decorticated surfaces and good distraction of each interspace. Attention was brought to the next interspace. The [place] pins were removed. Bone wax was used to prevent any bleeding from occurring at the pin sites. Attention was brought to the C5/6 level that was confirmed on x-ray. A caspar pin was placed into the C5 vertebrae and the C6 vertebrae. The disk space was then distracted. The microscope was then brought in. A radical anterior discectomies were performed at C5/6. This included complete removal of the anterior annulus, nucleus, and posterior annulus. The posterior longitudinal ligament was removed as were the posterior osteophytes. Foraminotomies were then accomplished bilaterally. This was done using a high speed elizabeth, kerrison rongeurs and curretes Once all of this was accomplished, the curved currette was used to check for any residual compression. The central canal was wide open as were the foramen. A high-speed bur was used to remove the cartilaginous endplates above and below the interspace. Bleeding cancellous bone was exposed. The disc space were measured and appropriate size cage were placed sterilely onto the field. Allograft graft was packed into the cages. The cage was then placed and there was good juxtaposition against the bleeding decorticated surfaces and good distraction of each interspace. Attention was brought to the next interspace. The [place] pins were removed. Bone wax was used to prevent any bleeding from occurring at the pin sites. Attention was brought to the C6/7 level that was confirmed on x-ray. A caspar pin was placed into the C6 vertebrae and the C7 vertebrae. The disk space was then distracted. The microscope was then brought in. A radical anterior discectomies were performed at C6/7. This included complete removal of the anterior annulus, nucleus, and posterior annulus. The posterior longitudinal ligament was removed as were the posterior osteophytes. Foraminotomies were then accomplished bilaterally. This was done using a high speed elizabeth, kerrison rongeurs and curretes Once all of this was accomplished, the curved currette was used to check for any residual compression. The central canal was wide open as were the foramen. A high-speed bur was used to remove the cartilaginous endplates above and below the interspace. Bleeding cancellous bone was exposed. The disc space were measured and appropriate size cage were placed sterilely onto the field. Allograft graft was packed into the cages. The cage was then placed and there was good juxtaposition against the bleeding decorticated surfaces and good distraction of each interspace. The [place] pins were removed. Bone wax was used to prevent any bleeding from occurring at the pin sites. The appropriate size anterior cervical locking plate was chosen and bent into gentle lordosis. Two screws were then placed into each of the vertebral bodies at C4, C5, C6 and C7. There was excellent purchase. A final x-ray was done confirming good position of the hardware and Cages. The locking screws were then applied, also with excellent purchase. Following a final copious irrigation, there was good hemostasis and no dural leaks. The carotid pulse was strong. The wounds were then closed in layers using 2-0 Vicryl suture for the platysma muscle, 2-0 Vicryl suture for the subcutaneous tissue, and 4-0 monocryl suture in a subcuticular skin closure. Glue was placed followed by application of a sterile dressing. The drain was hooked to bulb suction. A soft collar was applied. The patient was then carefully returned to the supine position on his hospital bed where he was reversed and extubated and taken to the recovery room having tolerated the procedure well.
--- NOTE | 2024-07-01 10:35 | ANE.PACU2 ---
Inpatient post-anesthesia follow up: Airway intact: Yes Vital signs: Temperature 97.8 F Pulse Rate 77 Respiratory Rate 16 Blood Pressure 138/82 Pulse Oximetry 92 Oxygen Delivery Me thod Room Air Oxygen Flow Rate 10 Fraction of Inspir ed Oxygen Hydration adequate: Yes Nausea and vomiting: No Pain level: 1 Mental status: Baseline
--- NOTE | 2024-07-01 10:49 | PC.NURSE ---
1143 - x2 nurses transported pt via bed to room 262 - report previously called to SEEMA Smith - [employer]IVER to room - 1147 - this nurse to nurses station to retrieve charge nurse to check pt in - SEEMA Infante to room - verified anterior neck dressing, c collar in place, hemovac empty and compressed - current vital signs per floor - temp 97.8 BP 142/86 - pulse 73 - 02 92% on room air - Notified charge nurse, SEEMA Smith and [employer]IVER that pt currently has urinal between legs and wishes to leave there - care to floor per SEEMA Infante
[2024-07-01] MEDS: lactated ringers 1,000 ML 90 ML IV ×2 (10:59→21:54)
[2024-07-01] MEDS: morphine 4 mg/mL SDV 1 mL 2 MG IVP (11:39)
[2024-07-01] MEDS: ketorolac 30 mg/mL INJ IVP ×2 (12:30→21:53)
[2024-07-01] MEDS: HYDROcodone-acetaminophen 5-325 mg Tablet PO ×2 (15:19→19:39)
[2024-07-01] MEDS: docusate sodium 100 mg Capsule PO (17:14)
[2024-07-02] VITALS: BP 148/81; PULSE 93; RESP 17; TEMP 36.8; O2SAT 93
[2024-07-02] MEDS: HYDROcodone-acetaminophen 5-325 mg Tablet PO ×3 (00:17→11:11)
[2024-07-02 04:37] VITALS: BP 139/71; PULSE 82; RESP 16; TEMP 36.8; O2SAT 94
[2024-07-02 06:00] VITALS: BP 139/71; PULSE 82; RESP 16; TEMP 36.8; O2SAT 94
[2024-07-02] MEDS: ceFAZolin 2,000 mg SDV 2000 MG IVP (06:12)
[2024-07-02 07:25] VITALS: BP 123/71; PULSE 81; RESP 17; TEMP 36.7; O2SAT 92
[2024-07-02] MEDS: sulfaSALAzine 500 mg Tablet 1000 MG PO (07:51)
[2024-07-02] MEDS: cyanocobalamin 1,000 mcg Tablet 1000 MCG PO (07:52)
[2024-07-02] MEDS: amitriptyline 25 mg Tablet 50 MG PO (07:52)
[2024-07-02] MEDS: docusate sodium 100 mg Capsule PO (07:52)
[2024-07-02] MEDS: cholecalciferol (vitamin D3) 1,000 unit Tablet 2000 UNIT PO (07:52)
[2024-07-02] MEDS: multivitamin therapeutic Tablet 1 TAB PO (07:54)
[2024-07-02] MEDS: ketorolac 30 mg/mL INJ IVP (07:57)
--- NOTE | 2024-07-02 09:38 | P.DS_ITS ---
Discharge Providers Date of Admission: 07/01/24 09:36 Date of Discharge: July 02, 2024 Attending Provider at Admission: Luan Costa DO Attending Provider at Discharge: Luan Costa DO Primary Care Provider: GRABIEL Sow Reason for Visit Reason for Visit: M54.12 Physical Exam Narrative: Patient has 5 of 5 strength hands are much improved. Patient is having swallowing issues. Urinary Catheter Management: Pacheco: Cath Placed During This Visit: yes Reason for Continuing Indwelling Catheter: Not indwelling catheter Urinary Catheter Date of Insertion: 07/01/24 Urinary Catheter Time of Insertion: 00:15 Discharge Data Studies Completed and Pending Completed Studies During Hospitalization Category Date Time Status XR cervical spine 3V* [id number] Routine Exams 07/01/24 00:00 Completed Radiology Impressions Cervical Spine X-Ray 07/01/24 00:00 IMPRESSION: Anterior cervical fusion as above without abnormality. Laboratory Results Blood Type A Positive 07/01/24 06:29 Rho(D) Type Rh positive 07/01/24 06:29 Antibody Screen Negative 07/01/24 06:29 Vitals Last Vital Signs Temp 98.0 F 07/02/24 07:25 Pulse 81 07/02/24 07:25 Resp 17 07/02/24 07:25 BP 123/71 07/02/24 07:25 Pulse Ox 92 07/02/24 07:25 O2 Del Method Room Air 07/02/24 04:37 O2 Flow Rate 10 07/01/24 09:57 Discharge Plan Discharge Patient Disposition: Home Condition: Stable Prescriptions: New hydrocodone-acetaminophen 5-325 mg tablet 1 - 2 tab PO .Q4-6H Qty: 40 0RF Continued multivitamin Tablet 1 tab PO DAILY (DME) Custom Molded Orthotics See Rx Instructions .Route .MEDSUPPLY Qty: 1 0RF Rx Instructions: As directed sulfasalazine 500 mg tablet 1 g PO DAILY Qty: 180 1RF Rx Instructions: Take 1 QD daily x1wk then 1 BID. give with food (meal/snack) cholecalciferol (vitamin D3) 50 mcg (2,000 unit) capsule 50 mcg PO DAILY mecobalamin (vitamin B12) 1,000 mcg tablet,chewable 1,000 mcg PO DAILY mometasone 0.1 % ointment 1 applic topical DIRECTED betamethasone dipropionate 0.05 % ointment 1 applic topical PRN tacrolimus 0.1 % ointment 1 applic topical DIRECTED mupirocin 2 % ointment 1 applic topical DIRECTED (DME) Bone Growth Stimulator See Rx Instructions .Route .MEDSUPPLY Qty: 1 0RF Rx Instructions: As directed amitriptyline 50 mg tablet 50 mg PO DAILY Qty: 90 0RF Rx Instructions: Take 1 tablet by mouth once daily bisoprolol-hydrochlorothiazide 10-6.25 mg tablet 1 tab PO DAILY Rx Instructions: TAKE 1 TABLET BY MOUTH EVERY DAY Cimzia 400 mg/2 mL (200 mg/mL x 2) syringe kit 200 mg SUBCUT .Q14D Rx Instructions: inject 200mg subcutaneously every 14 DAYS FOR ankylosing spondylitis Discharge Orders: Discharge Order (Routine); Ordered 07/02/24 Ordered By: Luan Costa Referrals: Luan Costa, [Physician] - 07/16/24 8:30 am Discharge Diet: Advance as tolerated Discharge Activity: Limit activity as instructed Patient Instructions: Acute Wound Care (DC), Opioid Safety, Post Anesthesia Care Activity Restrictions/Additional Instructions: Thank you for choosing [facility] for your care! The following is a list of instructions, from your provider, to follow upon your discharge to ensure you have the optimal recovery from your recent injury or surgery. Anterior Cervical Discectomy and Fusion: What to Expect at Home Your Recovery Follow-up care is a olson part of your treatment and safety. Be sure to make and go to all appointments, and call your doctor if you are having problems. If you do not already have a follow-up appointment made, call office in the next 1-3 days to make follow up appointment for 2 weeks at [phone]. It is also a good idea to know your test results and keep a list of the medicines you take. You can expect your neck to feel stiff or sore after surgery. This should improve in the weeks after surgery. But it may take 4 to 6 months for you to get better completely. You may have trouble sitting or standing in one position for very long and may need pain medicine in the weeks after your surgery. It may take 4 to 6 weeks to get back to your usual activities, but it may depend on what kind of surgery you had. Your throat will feel sore and it may be difficult to swallow for the first 3 days after your surgery. As long as you can get liquids down without difficulty, this should slowly improve, otherwise call our office or seek medical attention if it becomes increasingly difficult to get anything down including liquids. Avoid hot liquids for first 3-5 days. Soothing foods/liquids such as jello, pudding, and luke warm soups are recommended until swallowing improves. Staying elevated will also help, it's advised you keep propped up at while sleeping to help reduce the swelling. You may use an ice pack directly on your incision or around it on the front of your neck, using a cloth to protect your skin; and a heating pad to the back of your neck as needed. Do not use over the counter anti-inflammatory medications (Ibuprofen, Motrin, Aleve, Advil, etc) Taking these meds after having a fusion can delay fusion rates, we recommend you avoid them for the first 3 months after your surgery[address] Dr. Costa may advise you to work with a physical therapist to strengthen the muscles around your neck and back - this will be discussed at your follow - up appointments. The pain or numbness you were having in your arms before surgery should get better or go away completely. This care sheet gives you a general idea about how long it will take for you to recover. But each person recovers at a different pace. Follow the steps below to get better as quickly as possible. How can you care for yourself at home? Activity ? Rest when you feel tired. Getting enough sleep will help you recover. ? Try to walk each day. Start by walking a little more than you did the day before. Bit by bit, increase the amount you walk. Walking boosts blood flow and helps prevent pneumonia and constipation. Walking may also decrease your muscle soreness after surgery. ? No lifting anything that is more that 5 pounds. This may include heavy grocery bags and milk containers, a heavy briefcase or backpack, cat litter or dog food bags, a child, or a vacuum strip cleaner. ? Avoid strenuous activities, such as bicycle riding, jogging, weightlifting, or aerobic exercise, until your doctor says it is okay. ? Do not drive until your follow-up visit after your surgery, or until your doctor says it isokay. ? Avoid taking long car trips for 2 to 4 weeks after surgery. Your neck may become tired and painful from sitting too long in one position. ? You will probably need to take 4 to 6 weeks off from work. It depends on the type of work you do and how you feel. ? You may have sex as soon as you feel able, but avoid positions that put stress on your neck or cause pain. Diet ? You can eat your normal diet. If your stomach is upset, try bland, low-fat foods like plain rice, broiled chicken, toast, and yogurt ? Drink plenty of fluids. If you have kidney, heart, or liver disease and have to limit fluids, talk with your doctor before you increase the amount of fluids you drink. ? You may notice that your bowel movements are not regular right after your surgery. This is common. Try to avoid constipation and straining with bowel movements. You may want to take a fiber supplement every day. If you have not had a bowel movement after a couple of days, ask your doctor about taking a mild laxative. Medicines ? Take pain medicines exactly as directed. 1. If Dr. Costa gave you a prescription medicine for pain, take lt as prescribed. 2. Do not take two or more pain medicines at the same time unless the doctor told you to. Many pain medicines have acetaminophen, which is Tylenol. Too much acetaminophen {Tylenol) can be harmful. 3. If you think your pain pill is making you sick to your stomach: 4. Take your pills after meals (unless your doctor has told you not to). 5. Ask your Dr. for a different pain pill. Incisioncare ? Remove your dressing 48hours after your surgery. Ok to shower and get the incision wet. Do not overtly wash your incision. When done, pad dry, leave open to air thereafter. Avoid creams and ointments directly on your incision. ? Your sutures in the incision will dissolve and fall out on their own. ? Keep the area clean and dry. You may cover it with a gauze bandage if it weeps or rubs against clothing; if you choose to do this, change the dressing everyday. Other instructions ? Use a heating pad, hot water bottle, or gentle massage on your back to reduce stiffness. Avoid putting heat on your incision When should you call for help? ? Call 911 anytime you think you may need emergency care. For example, call if: ? You pass out (lose consciousness). ? You have sudden chest pain and shortness of breath, or you cough upblood. ? You cannot swallow. ? You have severe pain in your neck or back. ? Call your Dr. or seek immediate medical care if: ? You have pain that does not get better after you take pain pills. ? You have loose stitches, or your incision comes open. ? You have blood or fluid draining from the incision. ? You have signs of infection, such as: 1. Increased pain, swelling, warmth, or redness. 2. Red streaks leading from the site. 3. Pus draining from the site. 4. Swollen lymph nodes in your neck or armpits. 5. A fever. ? You have severe pain in your arms. ? You have new or increased weakness or numbness in your arms. ? Watch closely for any changes in your health, and be sure to contact your doctor if: ? You do not have a bowel movement after taking a laxative. Discharge Attestations Time Spent in Discharge Care*: less than 30 min Quality Metrics Clinical Quality Measures [ No reported AMI, CVA or VTE this stay] Coding Level of Care Code Acute Code for Chg Fwd
[2024-07-02 11:45] VITALS: BP 123/71; PULSE 81; O2SAT 92
== END 2024-07-02 11:35 | disposition home or self-care (01) | DRG 472 ==
LOC: MEDSURG 09:39
PROVIDERS: Admitting Provider Orthopaedic Surgery; PCP Registered Nurse; Visit Provider Orthopaedic Surgery
PROC: 0RB30ZZ Excision of Cervical Vertebral Disc, Open Approach (ICD-10-PCS; CPT 22551; principal; 2024-07-01 07:00)
DX: M47.12 Other spondylosis with myelopathy, cervical region (principal); K50.90 Crohn's disease, unspecified, without complications; M47.22 Other spondylosis with radiculopathy, cervical region; M48.02 Spinal stenosis, cervical region; G47.00 Insomnia, unspecified; K76.0 Fatty (change of) liver, not elsewhere classified; I10 Essential (primary) hypertension; Z86.15 Personal history of latent tuberculosis infection; Z90.49 Acquired absence of other specified parts of digestive tract; Z80.9 Family history of malignant neoplasm, unspecified; Z83.3 Family history of diabetes mellitus; Z82.3 Family history of stroke; Z82.49 Family history of ischemic heart disease and other diseases of the circulatory system
CPT/HCPCS: 36415; 51702; 72040; 76000; 86850; 86900; 97110; 97116; 97161; C1713; C1763; C9359; J0330; J0690; J1100; J1171; J1885; J2250; J2270; J2405; J2704; J2710; J3010; J3490; J7030; J7120

== ENCOUNTER → 2024-07-16 08:12 | Outpatient (BNVA) | payer MEDICARE, SELFPAY | PROVIDERS: PCP Registered Nurse; Visit Provider Orthopaedic Surgery | DX: Z98.1 Arthrodesis status (principal) | CPT/HCPCS: 99024 ==

== ENCOUNTER → 2024-07-17 13:51 | Outpatient (BNVA) | payer MEDICARE, SELFPAY | PROVIDERS: PCP Registered Nurse; Visit Provider Internal Medicine Rheumatology | DX: M45.9 Ankylosing spondylitis of unspecified sites in spine (principal); Z79.899 Other long term (current) drug therapy; Z15.89 Genetic susceptibility to other disease; K50.90 Crohn's disease, unspecified, without complications; Z71.89 Other specified counseling | CPT/HCPCS: 99214 ==

== ENCOUNTER → 2024-08-13 13:41 | Outpatient (BNVA) | payer MEDICARE, SELFPAY | PROVIDERS: PCP Registered Nurse; Visit Provider Orthopaedic Surgery | DX: Z98.1 Arthrodesis status (principal) | CPT/HCPCS: 72040; 99024 ==

== ENCOUNTER → 2024-10-03 13:43 | Outpatient (BNVA) | payer MEDICARE, SELFPAY | PROVIDERS: PCP Registered Nurse; Visit Provider Orthopaedic Surgery | DX: Z98.1 Arthrodesis status (principal) | CPT/HCPCS: 72040; 99024 ==

== ENCOUNTER → 2024-11-28 06:25 | Outpatient (BNVA) | payer MEDICARE, SELFPAY | PROVIDERS: PCP Registered Nurse; Referring Provider Psychiatry & Neurology Neurology; Visit Provider Psychiatry & Neurology Neurology | DX: G62.9 Polyneuropathy, unspecified (principal); H53.9 Unspecified visual disturbance; Q28.3 Other malformations of cerebral vessels; M54.2 Cervicalgia; R29.2 Abnormal reflex; M79.601 Pain in right arm; M79.602 Pain in left arm; R25.2 Cramp and spasm | CPT/HCPCS: 95819; 95913; 99212 ==

== ENCOUNTER → 2024-12-03 09:27 | Outpatient (BNVA) | payer MEDICARE, SELFPAY | PROVIDERS: PCP Registered Nurse; Visit Provider Orthopaedic Surgery | DX: G56.03 Carpal tunnel syndrome, bilateral upper limbs (principal); G56.23 Lesion of ulnar nerve, bilateral upper limbs | CPT/HCPCS: 99204 ==

== ENCOUNTER → 2024-12-31 13:36 | Outpatient (BNVA) | payer MEDICARE, SELFPAY | PROVIDERS: PCP Registered Nurse; Visit Provider Orthopaedic Surgery | DX: Z98.1 Arthrodesis status (principal) | CPT/HCPCS: 72040; 99213 ==

== ENCOUNTER 2025-01-08 05:30 | Day surgery (SDC) | payer MEDICARE, SELFPAY ==
[2025-01-08] VITALS (10 sets, daily range): BP systolic 105–122; BP diastolic 70–83; PULSE 70–79; RESP 16–18; TEMP 36.1–36.6; O2SAT 97–100; BMI 27.1
[2025-01-08] MEDS: sodium chloride 0.9% 1,000 ML 30 ML IV (06:16)
--- NOTE | 2025-01-08 06:43 | ANES.PREANE2 ---
Pre-Anesthetic Assessment Height/Weight: Height 1.8 m Weight 88.451 kg Temp Pulse Resp BP Pulse Ox O2 Del Method 97.0 F L 71 18 117/78 97 Room Air 01/08/25 06:03 01/08/25 06:03 01/08/25 06:03 01/08/25 06:03 01/08/25 06:03 01/08/25 06:04 Operation Date: 01/08/25 07:00 Proposed Procedures p Carpal Tunnel Release(Right) - Freedom Lowery MD s Cubital Tunnel Release(Right) - Freedom Lowery MD Familial anesthetic complications: Alpha gal Was Beta Catalina taken within 24 hours: N/A Was Clonidine taken within 24 hours: N/A Last intake: Intake Last Liquid Date 01/07/25 Last Liquid Time 19:30 Last Solid Date 01/07/25 Last Solid Time 17:30 Social No alcohol and No tobacco Exam alert, oriented x 3, clear to auscultation bilaterally and regular rate & rhythm Airway Mallampati: Class II Dentition: chipped and full Comments: Comments: hx cervical fusion CV/HEM Hypertension GI crohn's Musc/skel ankylosing spondylitis Anesthetic Plan ASA status: 3 Anesthesia: General Risk of > 500 ml blood loss (7ml/kg in children): No Medications/Allergies Home Medications ?Medication ?Instructions ?Recorded ?Confirmed ?Last Taken ?Type multivitamin 1 tab PO DAILY 07/29/20 01/08/25 06/20/24 History Custom Molded Orthotics #1 ea 09/16/21 12/31/24 Unknown Rx betamethasone dipropionate 0.05 % 1 applic topical PRN 03/27/24 01/07/25 01/02/25 History topical ointment cholecalciferol (vitamin D3) 50 50 mcg PO DAILY 03/27/24 01/08/25 06/20/24 History mcg (2,000 unit) capsule mecobalamin (vitamin B12) 1,000 1,000 mcg PO DAILY 03/27/24 01/08/25 06/26/24 History mcg chewable tablet mometasone 0.1 % topical ointment 1 applic topical DIRECTED 03/27/24 01/08/25 12/25/24 History mupirocin 2 % topical ointment 1 applic topical DIRECTED 03/27/24 01/08/25 Unknown History Bone Growth Stimulator #1 ea 07/08/24 12/31/24 Unknown Rx certolizumab pegol 400 mg/2 mL 200 mg SUBCUT .Q14D #2 ea 07/17/24 01/07/25 01/20/24 Rx (200 mg/mL x2) subcutaneous syringe kit (Cimzia) sulfasalazine 500 mg tablet 1 g (2 x 500 mg) PO DAILY #360 tabs 07/17/24 01/08/25 01/01/25 Rx amitriptyline 50 mg tablet 50 mg PO DAILY #90 tabs 07/30/24 01/07/25 01/06/25 Rx bisoprolol 10 1 tab PO DAILY 90 days #90 tabs 07/30/24 01/08/25 01/08/25 Rx mg-hydrochlorothiazide 6.25 mg tablet Allergies Allergy/AdvReac Type Severity Reaction Status Date / Time Alpha-Gal Allergy ADR-Gastrointestinal Verified 01/07/25 09:59 (Jxtaxkdqb-Mpbcb-8,3-Gala Upset Current Medications Generic Name Dose Route Start Last Admin Trade Name Freq PRN Reason Stop Dose Admin Sodium Chloride 1,000 mls @ 30 mls/hr 01/08/25 06:00 01/08/25 06:16 Sodium Chloride 0.9% IV 01/09/25 05:59 30 mls/hr .Q24H CRISTIAN Administration PFSH Anesthesia Medical History COVID-19 vaccine administered Pancreatitis Insomnia disorder Immunization counseling High risk medication use Crohn's disease in remission HLA B27 (HLA B27 positive) Ankylosing spondylitis Crohn's disease Ankylosing spondylitis Non-alcoholic fatty liver disease DDD (degenerative disc disease) Hypertension Atrial septal aneurysm Latent tuberculosis Tx rifampin finished 05/2020 Hiatal hernia repair in 1994 Surgical History History of bowel resection with appey 1998 Family History Other Cancer Diabetes Hypertension Stroke Denies family history of Rheumatoid arthritis Lupus CAD (coronary artery disease) Hyperlipidemia Chronic kidney disease (CKD) Lung disease Social History Smoking and tobacco/nicotine status: never used tobacco/nicotine Alcohol intake: never Current occupation: disabled PT
--- NOTE | 2025-01-08 06:48 | W.PM.OPSUD ---
Surgery/Procedure H&P Update DATE OF PROCEDURE: January 08, 2025 DATE H&P PERFORMED: 01/02/25 H&P UPDATE INFORMATION: I have reviewed H&P completed within last 30 days, I have examined patient prior to procedure, No changes to prior documentation and Risks and benefits of the procedure reviewed PREOP DIAGNOSIS: Right carpal tunnel syndrome, right cubital tunnel syndrome PLANNED PROCEDURE: Operation Date: 01/08/25 07:00 Proposed Procedures p Carpal Tunnel Release(Right) - Freedom Lowery MD s Cubital Tunnel Release(Right) - Freedom Lowery MD
[2025-01-08] MEDS: ceFAZolin 2,000 mg SDV 2000 MG IVP (06:53)
[2025-01-08] MEDS: ROPivacaine 0.5% SDV 30 mL 50 MG INJECTION (07:15)
[2025-01-08] MEDS: lidocaine-epi 1% 20 mL INJ 10 ML INJECTION (07:15)
--- NOTE | 2025-01-08 09:05 | ANE.PACU2 ---
Inpatient post-anesthesia follow up: Airway intact: Yes Vital signs: Temperature 97.8 F Pulse Rate 73 Respiratory Rate 18 Blood Pressure 121/81 Pulse Oximetry 97 Oxygen Delivery Me thod Room Air Oxygen Flow Rate 6 Fraction of Inspir ed Oxygen Hydration adequate: Yes Nausea and vomiting: No Pain level: 1 Mental status: Baseline
--- NOTE | 2025-01-08 09:30 | PM.OP ---
Operative Report Date of procedure: January 08, 2025 Surgeon: Freedom Lowery MD Procedure: Preoperative diagnosis: Right carpal tunnel syndrome as well as right cubital tunnel syndrome. Postop diagnosis: Same Procedure: Right carpal tunnel release, right cubital tunnel decompression with partial medial epicondylectomy. Surgeon: Freedom Lowery MD Anesthesia: General Tourniquet time: 25 minutes at 250 mmHg EBL: None Indications: Carrillo is a 59-year-old white male was referred to the orthopedic clinics for evaluation of numbness and tingling within his right hand. Subsequent EMG studies demonstrated compression of the right carpal tunnel as well as right cubital tunnel. Patient had clinical exam was consistent with that 2. Therefore having failed all conservative measures patient was offered a carpal tunnel release as well as a cubital tunnel release. We did discuss possibility of transposition of the ulnar nerve versus epicondylectomy versus just decompression. All risk benefits treatment alternatives were discussed with him and he was agreeable to proceed with surgical intervention. Procedure: After obtaining her consent patient was taken the operating room placed the op table supine position general anesthetic administered with good anesthesia was achieved right upper extremities prepped draped usual fashion. A sterile tourniquet was then placed on the arm. After surgical timeout the right arm was exsanguinated with an Esmarch wrap. Pneumatic cuff inflated 250 mmHg. With the arm actually rotated and slightly flexed at the elbow and a curvilinear incision made directly over the medial epicondyle of the elbow. Sharp dissection taken on down to subcutaneous tissues. Blunt sharp dissection was done with Metzenbaum scissors down to the ulnar nerve. Fascia the ulnar nerve was raised up off there carefully with small pickups and Metzenbaum scissors. This was dissected proximally up into the mid humerus region freeing up the ulnar nerve completely. As well as down into the muscle bellies of the forearm. Care was taken not to damage the nerve at a time. Once his ulnar nerve was released he was evaluated through range of motion is finding to be stretching across the medial epicondyle and trying to the medial epicondyle. Therefore at this time a decompression was decided to be done. Soft tissues and periosteum were raised sharply off the medial epicondyle. Using small osteotomes partial medial epicondylectomy is done at this time. This was then covered up with the previous periosteum that had been stripped with 3-0 Vicryl [id number] sutures. Care again was taken to protect the nerve during this entire time. With this area close now flexion extension of the elbow demonstrated less tension on the ulnar nerve. Subcutaneous tissue reapproximated at the 3-0 Vicryl interrupted sutures. Skin was closed with running 3-0 nylon horizontal mattress suture. Attention is now turned towards the carpal tunnel. Longitudinal incision was made just ulnar to the mid palmar crease extending from the distal flexion crease of the wrist distally approximately 1-1/2 to 2 cm. Sharp dissection taken all the way down to the transverse carpal ligament with a #15 blade. Transverse carpal ligament was then divided along the course of the skin incision. Once within the carpal tunnel under blunt sharp fashion Metzenbaum scissors releases both proximally and distally without any difficulties. Wound was then closed with 3-0 nylon running horizontal mattress suture. Subsequently at this point pneumatic cuff deflated after 25 minutes total tourniquet time. Wounds were dressed with Xeroform gauze sterile gauze dressing, Kerlix wrap, Jason wrap for compression. Patient was placed in arm sling for comfort and awakened and transferred to cover room in stable condition
== END 2025-01-08 09:05 | disposition home or self-care (01) ==
PROVIDERS: PCP Family Medicine; Visit Provider Orthopaedic Surgery
PROC: (CPT 64721; principal; 2025-01-08 07:00)
PROC: (CPT 64718; 2025-01-08 07:00)
DX: G56.03 Carpal tunnel syndrome, bilateral upper limbs (principal); G56.21 Lesion of ulnar nerve, right upper limb; Z98.1 Arthrodesis status; I10 Essential (primary) hypertension; K50.90 Crohn's disease, unspecified, without complications; Z79.899 Other long term (current) drug therapy; Z88.8 Allergy status to other drugs, medicaments and biological substances; Z90.49 Acquired absence of other specified parts of digestive tract; Z87.891 Personal history of nicotine dependence
CPT/HCPCS: 64718; 64721; J0690; J1100; J1885; J2405; J2704; J2795; J3010; J7030; J9999

== ENCOUNTER 2025-01-15 12:48 | Outpatient (CLI) | payer MEDICARE, SELFPAY ==
[2025-01-15 13:34] LABS: Basophils # 0.1 10^3/uL (0.0-0.1); Basophils % 1.4 %; Eosinophils # 0.4 10^3/uL (0.0-0.8); Eosinophils % 5.3 %; Hematocrit 42.3 % (37-53); Lymphocytes % 25.3 %; Mean Corpuscular HGB Conc 33.6 g/dL (30-55); Mean Corpuscular Hemoglobin 30.3 pg (27-33); Mean Corpuscular Volume 90.2 fl (82-101); Mean Platelet Volume 9.7 fL (7.4-10.4); Neutrophils # 4.41 10^3/uL (1.8-7.7); Neutrophils % 55.6 %; Nucleated Red Blood Cells % 0 %; Platelet Count 297 10^3/cmm (157-399); Red Blood Count 4.69 10^6/uL (3.85-5.65); Red Cell Distribution Width 12.4 % (12.1-15.1); White Blood Count 7.92 10^3/uL (3.29-11.43)
[2025-01-15 13:38] LABS: Erythrocyte Sedimentation Rate 12 mm/hr (0-10)
[2025-01-15 13:48] LABS: Alanine Aminotransferase 30 U/L (0-41); Albumin Level 4.3 g/dL (3.5-5.2); Alkaline Phosphatase 63 U/L (40-130); Aspartate Amino Transferase 31 U/L (0-40); C Reactive Protein 6.7 mg/L (0.0-4.9); Globulin 3.9 g/dL (1.3-4.6); Glomerular Filtration Rate 86.1 mL/min (90-130); Total Bilirubin 0.5 mg/dL (0.15-1.2); Total Protein 8.2 g/dL (6.6-8.7)
== END 2025-01-15 12:49 | disposition home or self-care (01) ==
PROVIDERS: PCP Family Medicine; Visit Provider Internal Medicine Rheumatology
DX: M45.9 Ankylosing spondylitis of unspecified sites in spine (principal); Z15.89 Genetic susceptibility to other disease; K50.90 Crohn's disease, unspecified, without complications; Z79.899 Other long term (current) drug therapy; Z71.89 Other specified counseling
CPT/HCPCS: 36415; 80076; 82565; 85025; 85651; 86140; 99214

== ENCOUNTER → 2025-01-21 14:01 | Outpatient (BNVA) | payer MEDICARE, SELFPAY | PROVIDERS: PCP Family Medicine; Visit Provider Orthopaedic Surgery | DX: Z98.890 Other specified postprocedural states (principal) | CPT/HCPCS: 99024 ==

== ENCOUNTER 2025-02-19 05:47 | Day surgery (SDC) | payer MEDICARE, SELFPAY ==
[2025-02-19] VITALS (8 sets, daily range): BP systolic 111–143; BP diastolic 69–82; PULSE 61–79; RESP 15–27; TEMP 36.1–36.5; O2SAT 94–99; BMI 26.4
[2025-02-19] MEDS: sodium chloride 0.9% 1,000 ML 30 ML IV (06:30)
--- NOTE | 2025-02-19 06:43 | ANES.PREANE2 ---
Pre-Anesthetic Assessment Height/Weight: Height 1.8 m Weight 86.183 kg Temp Pulse Resp BP Pulse Ox O2 Del Method 97.0 F L 61 18 123/73 96 Room Air 02/19/25 06:08 02/19/25 06:08 02/19/25 06:08 02/19/25 06:08 02/19/25 06:08 02/19/25 06:16 Operation Date: 02/19/25 07:00 Proposed Procedures p LEFT Carpal Tunnel Release(Left) - Freedom Lowery MD s Cubital Tunnel Release(Left) - Freedom Lowery MD Familial anesthetic complications: NOne Was Beta Catalina taken within 24 hours: N/A Was Clonidine taken within 24 hours: N/A Last intake: Intake Last Liquid Date 02/19/25 Last Liquid Time 22:00 Last Solid Date 02/18/25 Last Solid Time 22:00 Social No alcohol and No tobacco Exam alert, oriented x 3, clear to auscultation bilaterally and regular rate & rhythm Airway Mallampati: Class I Dentition: full CV/HEM Hypertension GI crohn's Musc/skel ankylosing spondylitis Anesthetic Plan ASA status: 3 Anesthesia: General Risk of > 500 ml blood loss (7ml/kg in children): No Medications/Allergies Home Medications ?Medication ?Instructions ?Recorded ?Confirmed ?Last Taken ?Type multivitamin 1 tab PO DAILY 07/29/20 02/18/25 02/18/25 History Custom Molded Orthotics #1 ea 09/16/21 01/21/25 Unknown Rx betamethasone dipropionate 0.05 % 1 applic topical PRN 03/27/24 02/18/25 01/21/25 History topical ointment cholecalciferol (vitamin D3) 50 50 mcg PO DAILY 03/27/24 02/18/25 02/04/25 History mcg (2,000 unit) capsule mecobalamin (vitamin B12) 1,000 1,000 mcg PO DAILY 03/27/24 02/18/25 02/18/25 History mcg chewable tablet mupirocin 2 % topical ointment 1 applic topical DIRECTED 03/27/24 02/18/25 Unknown History Bone Growth Stimulator #1 ea 07/08/24 01/21/25 Unknown Rx amitriptyline 50 mg tablet 50 mg PO DAILY #90 tabs 07/30/24 02/18/2525 Rx bisoprolol 10 1 tab PO DAILY 90 days #90 tabs 07/30/24 02/18/25 02/19/25 Rx mg-hydrochlorothiazide 6.25 mg tablet certolizumab pegol 400 mg/2 mL 200 mg SUBCUT .Q14D #2 ea 01/15/25 02/18/25 02/04/25 Rx (200 mg/mL x2) subcutaneous syringe kit (Cimzia) sulfasalazine 500 mg tablet 0.5 g PO BID #180 tabs 01/15/25 02/18/25 02/18/25 Rx Allergies Allergy/AdvReac Type Severity Reaction Status Date / Time Alpha-Gal Allergy ADR-Gastrointestinal Verified 01/21/25 11:40 (Xfacverie-Isief-8,3-Gala Upset Current Medications Generic Name Dose Route Start Last Admin Trade Name Freq PRN Reason Stop Dose Admin Sodium Chloride 1,000 mls @ 30 mls/hr 02/19/25 06:00 02/19/25 06:30 Sodium Chloride 0.9% IV 02/20/25 05:59 30 mls/hr .Q24H CRISTIAN Administration PFSH Anesthesia Medical History COVID-19 vaccine administered Pancreatitis Insomnia disorder Immunization counseling High risk medication use Crohn's disease in remission HLA B27 (HLA B27 positive) Ankylosing spondylitis Crohn's disease Ankylosing spondylitis Non-alcoholic fatty liver disease DDD (degenerative disc disease) Hypertension Atrial septal aneurysm Latent tuberculosis Tx rifampin finished 05/2020 Hiatal hernia repair in 1994 Surgical History History of bowel resection with appey 1998 Family History Other Cancer Diabetes Hypertension Stroke Denies family history of Rheumatoid arthritis Lupus CAD (coronary artery disease) Hyperlipidemia Chronic kidney disease (CKD) Lung disease Social History Smoking and tobacco/nicotine status: former use of tobacco/nicotine Alcohol intake: never Current occupation: disabled PT
--- NOTE | 2025-02-19 06:50 | W.PM.OPSUD ---
Surgery/Procedure H&P Update DATE OF PROCEDURE: February 19, 2025 DATE H&P PERFORMED: 01/21/25 H&P UPDATE INFORMATION: I have reviewed H&P completed within last 30 days, I have examined patient prior to procedure and No changes to prior documentation PREOP DIAGNOSIS: Left carpal and cubital tunnel syndrome PLANNED PROCEDURE: Operation Date: 02/19/25 07:00 Proposed Procedures p LEFT Carpal Tunnel Release(Left) - Freedom Lowery MD s Cubital Tunnel Release(Left) - Freedom Lowery MD
[2025-02-19] MEDS: ceFAZolin 2,000 mg SDV 2000 MG IVP (06:55)
[2025-02-19] MEDS: ROPivacaine 0.5% SDV 30 mL 150 MG INJECTION (07:32)
[2025-02-19] MEDS: lidocaine-epi 1% 20 mL INJ INJECTION (07:33)
--- NOTE | 2025-02-19 08:13 | PM.OP ---
Operative Report Date of procedure: February 19, 2025 Surgeon: Freedom Lowery MD Procedure: Preoperative diagnosis: Left carpal tunnel syndrome and left cubital tunnel syndrome Postoperative diagnosis: Same Procedure: Left cubital tunnel release with partial medial epicondylectomy, and left carpal tunnel release Surgeon: Freedom Lowery MD Anesthesia: General Tourniquet time: 40 minutes at 250 mmHg Indications: Carrillo is a 59-year-old white male who is already had his right cubital tunnel and carpal tunnel releases done in the past is doing very well. He initially came into the clinics with positive nerve conduction test indicating compression of the median nerves and ulnar nerves of bilateral upper extremities. Having failed conservative measures he was offered surgical intervention. All risk benefits treatment alternatives have been discussed with him and he was willing to proceed with surgical intervention. He is now back for the left side to be done. Procedure: After obtaining the consent patient was taken to the operating room placed on the operative table supine position general anesthetic administered. Once good anesthesia achieved pneumatic cuffs placed around proximal left arm. Left arm was prepped and draped usual fashion. After surgical timeout arm was exsanguinated with an Esmarch wrap. Pneumatic cuff is inflated to 250 mmHg. A curvilinear incision was made directly over the medial epicondyle extending approximately 2-1/2 cm either direction from the central point. Sharp dissected gone down to subcutaneous tissues and electrocautery used to hemostasis. With Metzenbaum scissors in a blunt and sharp fashion dissection was taken all the way down till fascia was identified over the ulnar nerve. Dissection was continued more proximal to the medial epicondyle to allow to get into this fascia and divided. It was then divided proximally to release it. Digital palpation demonstrated no fascial bands or compression of the nerve was identified proximally. At the level of the medial epicondyle the nerve was found to be quite scarred in. Therefore carefully this tissue was dissected with Metzenbaum scissors and blunt sharp fashion all the way down into the belly of the flexor bundle of the left forearm. Continued dissection was done until the ulnar nerve was free and able to be repositioned easily. With flexion extension of the elbow nerve was still being compressed underneath the medial epicondyle. Therefore, at this time soft tissue was dissected out the medial epicondyle and then using small osteotome partial medial epicondylectomy was done to allow the ulnar nerve for more mobility. This bone fragments removed leaving behind the periosteal cover. Right bone was smoothed off with a small set of a rongeur's. And then bone wax placed over the raw bone. This entire time ulnar nerve was protected. 3-0 Vicryl [id number] suture then used to sew periosteal tissue back over the raw bone cut area. Elbow is fit to range of motion now ulnar nerve was able to glide easily through the cubital tunnel now. Subcutaneous tissues were reapproximated 3-0 Vicryl interrupted sutures. Skin was closed with running 3-0 nylon horizontal mattress suture. Area was injected with a mixture of half percent Marcaine and 1% lidocaine for postoperative pain management. Attention was then turned towards carpal tunnel region. Longitudinal incision made along the ulnar border of the mid palmar crease starting from the distal flexion crease on the wrist heading distally approximately 1 and half centimeters. Sharp dissect taken on down subcutaneous tissues. Sharp dissecting and on down the transverse carpal ligament and this was divided along the course of the skin incision. Once within the carpal tunnel. Metzenbaum scissors were used to blunt and sharp fashion to divided both proximally and distally until adequate decompression been achieved. Skin was then closed with 3-0 nylon horizontal mattress suture. This area was also injected with a mixture of half percent Marcaine and 1% lidocaine for postoperative pain management. Wounds are clean and dry dressed with Xeroform gauze, sterile gauze dressing, Kerlix wrap and Jason wrap for compression. Patient was awakened transferred to cover room in stable condition. Should be noted pneumatic cuff is deflated after wounds were closed after 40 minutes total tourniquet time.
[2025-02-19] MEDS: HYDROcodone-acetaminophen 5-325 mg Tablet 1 TAB PO (09:15)
--- NOTE | 2025-02-19 09:50 | ANE.PACU2 ---
Inpatient post-anesthesia follow up: Airway intact: Yes Vital signs: Temperature 97.7 F Pulse Rate 67 Respiratory Rate 15 Blood Pressure 124/82 Pulse Oximetry 95 Oxygen Delivery Me thod Room Air Oxygen Flow Rate Fraction of Inspir ed Oxygen Hydration adequate: Yes Nausea and vomiting: No Pain level: 1 Mental status: Baseline
== END 2025-02-19 09:50 | disposition home or self-care (01) ==
PROVIDERS: PCP Family Medicine; Visit Provider Orthopaedic Surgery
PROC: (CPT 64721; principal; 2025-02-19 07:00)
PROC: (CPT 64718; 2025-02-19 07:00)
DX: G56.02 Carpal tunnel syndrome, left upper limb (principal); G56.22 Lesion of ulnar nerve, left upper limb; I10 Essential (primary) hypertension; K50.90 Crohn's disease, unspecified, without complications; M45.9 Ankylosing spondylitis of unspecified sites in spine; Z91.014 Allergy to mammalian meats; Z22.7 Latent tuberculosis; Z87.891 Personal history of nicotine dependence
CPT/HCPCS: 64718; 64721; J0690; J1100; J2250; J2371; J2405; J2795; J3010; J7030; J9999

== ENCOUNTER → 2025-03-03 12:52 | Outpatient (BNVA) | payer MEDICARE, SELFPAY | PROVIDERS: PCP Family Medicine; Visit Provider Orthopaedic Surgery | DX: G56.22 Lesion of ulnar nerve, left upper limb (principal); G56.03 Carpal tunnel syndrome, bilateral upper limbs | CPT/HCPCS: 99024 ==

== ENCOUNTER → 2025-07-14 12:34 | Outpatient (BNVA) | payer MEDICARE, SELFPAY | PROVIDERS: PCP Family Medicine; Visit Provider Internal Medicine Rheumatology | DX: M45.9 Ankylosing spondylitis of unspecified sites in spine (principal); Z15.89 Genetic susceptibility to other disease; Z79.899 Other long term (current) drug therapy; K50.90 Crohn's disease, unspecified, without complications; Z71.85 Encounter for immunization safety counseling | CPT/HCPCS: 99214 ==

== ENCOUNTER → 2025-07-22 10:27 | Outpatient (BNVA) | payer MEDICARE, SELFPAY | PROVIDERS: PCP Family Medicine; Visit Provider Orthopaedic Surgery | DX: Z47.89 Encounter for other orthopedic aftercare (principal); Z98.1 Arthrodesis status | CPT/HCPCS: 72040; 99213 ==